=== PATIENT | male | born 1970 | race Caucasian/White ===

== ENCOUNTER 2024-03-19 11:21 | Outpatient (CLI) | payer OTHER | END 2024-03-19 11:22 | disposition home or self-care (01) | LOC: NAV RAD 11:21 | PROVIDERS: ATTEND Family Medicine | DX: M50.33 Other cervical disc degeneration, cervicothoracic region (principal); Z98.1 Arthrodesis status; Z98.890 Other specified postprocedural states | CPT/HCPCS: 72040 ==